=== PATIENT | male | born 1965 | race American Indian/Alaskan Native ===

== ENCOUNTER 2018-06-02 09:23 | Emergency (ER) | payer OTHER ==
--- NOTE | 2018-06-02 10:10 | C.PDOC ---
History Of Present Illness 53 year old male patient presents to the ER with c/o clicking noise in his right shoulder. Patient reports he was exercising regularly and when he woke up this morning, he could not lift his right arm over his head without assistance from his left arm. Patient denies weakness and numbness. Chief Complaint (Nursing): Upper Extremity Problem/Injury History Per: Patient History/Exam Limitations: no limitations Onset/Duration Of Symptoms: Hrs Current Symptoms Are (Timing): Still Present Past Medical History Reviewed: Historical Data, Nursing Documentation, Vital Signs Vital Signs: Last Vital Signs Temp 98.7 F 06/02/18 11:22 Pulse 79 06/02/18 11:22 Resp 16 06/02/18 11:22 BP 137/98 H 06/02/18 11:22 Pulse Ox 95 06/02/18 11:38 Family History: States: No Known Family Hx - Social History Hx Alcohol Use: Yes Hx Substance Use: No Review Of Systems Except As Marked, All Systems Reviewed And Found Negative. Constitutional: Negative for: Other (trauma) Musculoskeletal: Positive for: Shoulder Pain (right) Neurological: Negative for: Weakness, Numbness Physical Exam - Physical Exam Appears: Non-toxic, No Acute Distress Skin: Normal Color, Warm, Dry Head: Normacephalic Eye(s): bilateral: Normal Inspection Neck: Normal ROM, Supple Cardiovascular: Rhythm Regular Respiratory: Normal Breath Sounds Extremity: No Tenderness, Capillary Refill (<2 sec), No Deformity, No Swelling, Other (unable to lift right arm above the head) Pulses: Left Radial: Normal, Right Radial: Normal Neurological/Psych: Oriented x3, Normal Speech ED Course And Treatment O2 Sat by Pulse Oximetry: 95 (RA) Pulse Ox Interpretation: Normal - Other Rad XR right shoulder X-Ray: Read By Radiologist Interpretation: Accession No. : [id number]. Patient Name / ID : JIMI NICOLE / [id number]. Exam Date : 06/02/2018 10:10:57 ( Approved ). Study Comment : Sex / Age : M / 53Y. Creator : Bela Alicia V. Dictator : Bela Alicia V. Pilot Plant Research Technician : Teachers Assistant : Bela Alicia V. Approver2 : Report Date : 06/02/2018 11:26:07. My Comment : . Date of service: 06/02/2018. PROCEDURE: Radiographs of the Right Shoulder. HISTORY: pain on movement. COMPARISON: No prior. FINDINGS: BONES: No fracture seen. JOINTS: Glenohumeral and acromioclavicular mild arthrosis. SOFT TISSUES: Punctate calcific/ ossific like densities border lateral humeral head tuberosity regions -calcific rotator cuff tendinopathy and/or calcific bursitis and/or even tiny spurs are some considerations here. OTHER FINDINGS: None. IMPRESSION: No fracture or lytic lesion. Other findings as above. Medical Decision Making Medical Decision Making: Impression: sprained shoulder Plans: -- right shoulder XR Reassess: Patient was offered pain medications and muscle relaxer but he denied. Disposition - Disposition Referrals: [facility] [Outside] [facility] [place] [facility] [Outside] [facility] [place] [Outside] Disposition: HOME/ ROUTINE Disposition Time: 11:47 Condition: GOOD Prescriptions: Ibuprofen [Motrin] 600 mg PO Q6 #20 tab Instructions: Shoulder Sprain Forms: [employer] [facility] (Nauruan) - Clinical Impression Clinical Impression: Shoulder sprain - Scribe Statement The provider has reviewed the documentation as recorded by the Gustavoibjuan Gutierrez Do Provider Attestation: All medical record entries made by the Scribe were at my direction and personally dictated by me. I have reviewed the chart and agree that the record accurately reflects my personal performance of the history, physical exam, medical decision making, and the department course for this patient. I have also personally directed, reviewed, and agree with the discharge instructions and disposition.
[2018-06-02 11:23] VITALS: BP 137/98; PULSE 79; RESP 16; TEMP 98.7
--- NOTE | 2018-06-02 11:27 | RAD ---
Date of service: 06/02/2018 PROCEDURE: Radiographs of the Right Shoulder HISTORY: pain on movement COMPARISON: No prior. FINDINGS: BONES: No fracture seen JOINTS: Glenohumeral and acromioclavicular mild arthrosis. SOFT TISSUES: Punctate calcific/ ossific like densities border lateral humeral head tuberosity regions -calcific rotator cuff tendinopathy and/or calcific bursitis and/or even tiny spurs are some considerations here. OTHER FINDINGS: None. IMPRESSION: No fracture or lytic lesion. Other findings as above.
[2018-06-02 11:39] VITALS: O2SAT 95
== END 2018-06-02 11:48 | disposition home or self-care (01) ==
LOC: C.ER 09:23
DX: S43.401A Unspecified sprain of right shoulder joint, initial encounter (principal); X58.XXXA Exposure to other specified factors, initial encounter